=== PATIENT | female | born 1995 | race Hispanic/Latino ===

== ENCOUNTER 2021-05-26 06:27 | Emergency (ER) | payer BC ==
[2021-05-26] MEDS ORDERED: METOCLOPRAMIDE 10 MG/2 ML INJ IV ONE (07:46)
[2021-05-26] MEDS ORDERED: KETOROLAC 30 MG/1 ML INJ IV ONE (07:46)
--- NOTE | 2021-05-26 07:49 | Emergency Department Report ---
HPI - General Chief Complaint: Headache Time Seen by Provider: 05/26/21 06:54 - HPI HPI: This is a 25-year-old female presents to the emergency department with complaint of a frontal headache, nausea with vomiting, and photophobia, since last night that she says is a migraine headache. The patient usually gets a similar headache and the symptoms around the time of her menstrual cycle, which has just occurred. She says that usually she take some ibuprofen when she feels a headache coming on but she was staying with someone else and did not know where they kept any medications. She denies any vision change, slurred speech, numbness or paresthesias, focal or localized weakness, chest pain, fever, neck stiffness. Otherwise she denies any past medical history. No recent travel or sick contacts at home. ED Past Medical Hx - Past Medical History Previous Medical History?: No - Surgical History Past Surgical History?: No ED Review of Systems ROS: Stated complaint: MIGRAINE VOMITING Other details as noted in HPI Comment: All other systems reviewed and negative Constitutional: denies: chills, fever Eyes: other (Photophobia). denies: eye pain, vision change ENT: denies: ear pain, throat pain Respiratory: denies: cough, shortness of breath Cardiovascular: denies: chest pain, palpitations Gastrointestinal: denies: abdominal pain, vomiting Genitourinary: denies: dysuria, discharge Musculoskeletal: denies: back pain, arthralgia Skin: denies: rash, lesions Neurological: headache. denies: weakness, numbness, paresthesias Physical Exam - Physical Exam Vital Signs: Vital Signs 05/26/21 06:33 Temperature 97.8 F Pulse Rate 78 Respiratory 18 Rate Blood Pressure 150/110 O2 Sat by Pulse 99 Oximetry Physical Exam: GENERAL: The patient is well-developed well-nourished. HENT: Normocephalic. Atraumatic. Patient has moist mucous membranes. EYES: Extraocular motions are intact. No nystagmus. NECK: Supple. Trachea is midline. CHEST/LUNGS: Clear to auscultation. There is no respiratory distress noted. HEART/CARDIOVASCULAR: Regular. There is no tachycardia. There is no murmur. ABDOMEN: Abdomen is soft, nontender. Patient has normal bowel sounds. There is no abdominal distention. SKIN: Skin is warm and dry. NEURO: The patient is awake, alert, and oriented. The patient is cooperative. The patient has no focal neurologic deficits. Normal speech. Cranial nerves II through XII grossly intact. No facial asymmetry. MUSCULOSKELETAL: There is no tenderness or deformity. There is no limitation range of motion. ED Course Vital Signs 05/26/21 06:33 Temperature 97.8 F Pulse Rate 78 Respiratory 18 Rate Blood Pressure 150/110 O2 Sat by Pulse 99 Oximetry ED Medical Decision Making - Medical Decision Making This patient presents with a frontal headache, photophobia, nausea and vomiting. She says that this is consistent with recurrent headaches that she gets, especially around the time of her menstrual cycle. On examination she does not have any focal, motor or sensory deficits and her cranial nerves are intact. An IV was placed and the patient was given IV fluid resuscitation, Toradol, Reglan and magnesium. Upon reevaluation the patient is feeling greatly improved and able to pass an oral challenge. The headache has resolved. For all these reasons I did not feel that she required advanced CT imaging of the head at this time. Vital signs reassuring including being afebrile. Critical Care Time: No Critical care attestation.: If time is entered above; I have spent that time in minutes in the direct care of this critically ill patient, excluding procedure time. ED Disposition Clinical Impression: Headache Qualifiers: Headache type: unspecified Headache chronicity pattern: unspecified pattern Intractability: not intractable Qualified Code(s): R51.9 - Headache, unspecified Nausea & vomiting Qualifiers: Vomiting type: unspecified Vomiting Intractability: non-intractable Qualified Code(s): R11.2 - Nausea with vomiting, unspecified Disposition: 01 HOME / SELF CARE / HOMELESS Is pt being admited?: No Condition: Stable Instructions: General Headache Without Cause, Recurrent Migraine Headache, Nausea and Vomiting, Adult Additional Instructions: Please follow-up with your primary care physician in the next few days. I have given you a referral for a local neurologist, Dr Ashton, to get evaluated regarding your recurrent headaches and the possibility that they may be migraine headaches. Return to the emergency department with any worsening of your symptoms, new or concerning symptoms not addressed during this current emergency department visit, or with any acute distress. Referrals: CONSUELO ASHTON MD [Referring] - 3-5 Days PCP, Your [Other] - 3-5 Days Time of Disposition: 09:43
[2021-05-26] MEDS ORDERED: SODIUM CHLORIDE 0.9% 1000 ML 1,000 ML IV ONE (08:08)
[2021-05-26] MEDS ORDERED: MAGNESIUM SULFATE 1 GM in SODIUM CHLORIDE 0.9% 50 ML IV ONE (09:00)
[2021-05-26 10:29] VITALS: BP 136/83
== END 2021-05-26 10:29 | disposition home or self-care (01) ==
LOC: ED 06:27
DX: R51.9 Headache, unspecified (principal); R11.2 Nausea with vomiting, unspecified
CPT/HCPCS: 96361; 96365; 96375; 99282; J1885; J2765; J3475; J7030